=== PATIENT | female | born 1960 | race Asian ===

== ENCOUNTER 2020-04-06 08:45 | Outpatient (CLI) | payer BC ==
--- NOTE | 2020-04-06 09:41 | ULT ---
US Hepatic Doppler History: Abnormal liver function tests Comparison: None. Findings: Real-time grayscale, color and spectral analysis of the liver was performed. Visualized portion of the aorta, IVC and pancreas unremarkable. Diffuse increased hepatic echotexture without mass. Liver measures 17.1 cm in length. No contour nodularity. Portal vein is patent with antegrade flow. Veins are patent with antegrade flow. The common bile duct is normal measuring 5 mm. No abnormal bowel sludge balls versus polyps of the gallbladder wall measuring up to 7 mm. No pericho lecystic fluid. Spleen is normal measuring 9.5 cm in length. Splenic artery and vein are patent. Impression: 1. Diffuse increased hepatic echotexture suggesting steatosis. No abnormal contour nodularity. 2. Patent hepatic vessels with antegrade flow. 3. Nonmobile likely gallbladder polyps less likely adherent gallbladder sludge measuring up to 7 mm. Follow-up ultrasound in 6-12 months recommended.
== END 2020-04-06 08:46 | disposition home or self-care (01) ==
LOC: BICULT 08:45
PROVIDERS: ATTEND Internal Medicine Gastroenterology
DX: R94.5 Abnormal results of liver function studies (principal); R93.2 Abnormal findings on diagnostic imaging of liver and biliary tract
CPT/HCPCS: 76705

== ENCOUNTER 2023-11-30 12:51 | Outpatient (CLI) | payer BC | END 2023-11-30 12:52 | disposition home or self-care (01) | LOC: BICRAD 12:51 | PROVIDERS: ATTEND Internal Medicine Gastroenterology | DX: R79.9 Abnormal finding of blood chemistry, unspecified (principal) | CPT/HCPCS: 71046 ==

== ENCOUNTER 2025-05-26 16:16 | Outpatient (CLI) | payer BC | END 2025-05-26 16:17 | disposition home or self-care (01) | LOC: SCSRAD 16:16 | PROVIDERS: ATTEND Family Medicine | DX: S89.91XA Unspecified injury of right lower leg, initial encounter (principal); M17.11 Unilateral primary osteoarthritis, right knee ==